=== PATIENT | female | born 1955 | race Caucasian/White ===

== ENCOUNTER 2016-06-25 13:57 | Emergency (ER) | payer OTHER ==
[2016-06-25 16:12] LABS: Hematocrit 41 % (35-47); Hemoglobin 13.9 g/dl (12.0-16.0); Mean Corpuscular HGB Conc 34 g/dl (31-36); Mean Corpuscular Hemoglobin 30 pg (27-31); Mean Corpuscular Volume 87 fL (80-97); Mean Platelet Volume 8 um3 (7.4-10.4); Red Blood Count 4.71 10^6/ul (4.0-5.4); Red Cell Distribution Width 14 % (10.5-15)
--- NOTE | 2016-06-25 16:24 | RAD ---
HISTORY: Trembling, off-balance, tingling COMPARISONS: June 16, 2011 TECHNIQUE: Multiple contiguous axial CT scans were obtained of the head without intravenous contrast. FINDINGS: HEMORRHAGE/INFARCT: There is no hemorrhage or acute infarct. MASSES/SHIFT: There is no mass or shift. EXTRA-AXIAL SPACES: There are no extra-axial fluid collections. SULCI AND VENTRICLES: The sulci and ventricles are normal in size and position for the patient's stated age. 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 BRAINSTEM: There are no focal parenchymal abnormalities. CEREBELLUM: There are no focal parenchymal abnormalities. VESSELS: The vessels are grossly normal. PARANASAL SINUSES: The paranasal sinuses are clear. ORBITS: The orbits are unremarkable. BONES AND SOFT TISSUE: There is post surgical change to the skull. OTHER: None IMPRESSION: 1. 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 2. NO ACUTE INTRACRANIAL PATHOLOGY.
--- NOTE | 2016-06-25 16:32 | RAD ---
HISTORY: Tingling COMPARISONS: None VIEWS: 2: Frontal dual-energy and lateral views of the chest. FINDINGS: CARDIOMEDIASTINAL SILHOUETTE: The cardiomediastinal silhouette is normal. LANA: The lana are normal. PLEURA: The costophrenic angles are sharp. No pleural abnormalities are noted. LUNG PARENCHYMA: The lungs are clear. ABDOMEN: The upper abdomen is clear. There is no subphrenic gas. BONES AND SOFT TISSUES: No bone or soft tissue abnormalities are noted. OTHER: None. IMPRESSION: NO ACTIVE CARDIOPULMONARY DISEASE.
[2016-06-25 16:35] LABS: Albumin 4.6 g/dL (3.2-5.2); BUN/Creatinine Ratio 16.7 (8-20); Calcium 9.8 mg/dL (8.6-10.3); EGFR African American 88.4 (>60); EGFR Non-African American 68.7 (>60); Globulin 2.7 g/dL (2-4); Potassium 3.3 mmol/L (3.5-5.0); Total Bilirubin 0.4 mg/dL (0.2-1.0); Total Protein 7.3 g/dL (6.4-8.9)
[2016-06-25] MEDS ORDERED: Potassium Chlor TAB* 20 MEQ TAB.ER PO ONE (16:53)
[2016-06-25 17:24] LABS: Urine Bacteria Absent (Absent); Urine Bilirubin Negative (Negative); Urine Glucose Negative (Negative); Urine Nitrite Negative (Negative)
[2016-06-25 17:36] VITALS: BP 122/73
--- NOTE | 2016-06-25 20:10 | ED ---
Adarsh Mckinney Rebecca, scribed for Uriel Machado MD on 06/25/16 at 1547 . Dizziness - HPI Summary HPI Summary: Pt is a 61 y/o F who presents to ED c/o diffuse bodily tingling. States that sx are "not really dizziness" and that the sensation is "sort of an ethereal feeling," difficult to describe. C/o unsteady gait and sensation that the "sidewalk is moving". Sx began suddenly 2 days ago and have been intermittent since onset. Sx aggravated and alleviated by nothing. 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 Current episodes are different from episodes of auras in the past. - History Of Current Complaint Chief Complaint: EDDizziness Stated Complaint: SHAKY Time Seen by Provider: 06/25/16 15:43 Hx Obtained From: Patient Onset/Duration: Suddenly Timing: Intermittent Episode Lasting Character: Unable To Describe Aggravating Factor(s): Nothing Alleviating Factor(s): Nothing Associated Signs And Symptoms: Positive: Unsteady Gait, Visual Changes - Appears as though the ground is moving, Other: - Diffuse bodily tingling - Allergies/Home Medications Allergies/Adverse Reactions: Allergies Allergy/AdvReac Type Severity Reaction Status Date / Time Lamotrigine Allergy Mild Hives Verified 11/07/12 14:47 PMH/Surg Hx/FS Hx/Imm Hx Endocrine/Hematology History: Denies: Hx Diabetes Sensory History: Reports: Hx Contacts or Glasses Opthamlomology History: Reports: Hx Contacts or Glasses Neurological History: Reports: Hx Seizures - Cancer History Hx Chemotherapy: No Hx Radiation Therapy: No - Surgical History Surgery Procedure, Year, and Place: Part of brain removed to stop seizures. Infectious Disease History: No Infectious Disease History: Denies: Traveled Outside the [place] in Last 30 Days - Family History Known Family History: Negative: Cardiac Disease - Social History Alcohol Use: None Substance Use Type: Reports: None Smoking Status (MU): Never Smoked Tobacco Review of Systems Positive: Other - Ground appears to be moving Neurological: Other - Diffuse bodily tingling, unsteady gait All Other Systems Reviewed And Are Negative: Yes Physical Exam - Summary Physical Exam Summary: VITAL SIGNS: Reviewed. GENERAL: Patient is a well developed and nourished female who is lying comfortable in the stretcher. Patient is not in any acute respiratory distress. HEAD AND FACE: No signs of trauma. No ecchymosis, hematomas or skull depressions. No sinus tenderness. EYES: PERRLA, EOMI x 2, No injected conjunctiva, no nystagmus. No photophobia. EARS: Hearing grossly intact. Ear canals and tympanic membranes are within normal limits. MOUTH: Oropharynx within normal limits. NECK: Supple, trachea is midline, no adenopathy, no JVD, no carotid bruit, no c- spine tenderness, neck with full ROM. No meningeal signs, no Kernig's or brudzinskis signs. CHEST: Symmetric, no tenderness at palpation LUNGS: Clear to auscultation bilaterally. No wheezing or crackles. CVS: Regular rate and rhythm, S1 and S2 present, no murmurs or gallops appreciated. ABDOMEN: Soft, non-tender. No signs of distention. No rebound no guarding, and no masses palpated. Bowel sounds are normal. EXTREMITIES: FROM in all major joints, no edema, no cyanosis or clubbing. NEURO: Alert and oriented x 3. No acute neurological deficits. Speech is normal and follows commands. SKIN: Dry and warm Vital Signs On Initial Exam: Initial Vitals Temp Pulse Resp BP Pulse Ox 97.6 F 72 16 143/70 100 06/25/16 13:59 06/25/16 13:59 06/25/16 13:59 06/25/16 13:59 06/25/16 13:59 Diagnostics - Vital Signs Vital Signs Temp Pulse Resp BP Pulse Ox 06/25/16 13:59 97.6 F 72 16 143/70 100 - Laboratory Lab Results: Lab Results 06/25/16 Range/Units 15:55 WBC 8.0 (3.5-10.8) 10^3/ul RBC 4.71 (4.0-5.4) 10^6/ul Hgb 13.9 (12.0-16.0) g/dl Hct 41 (35-47) % MCV 87 (80-97) fL MCH 30 (27-31) pg MCHC 34 (31-36) g/dl RDW 14 (10.5-15) % Plt Count 260 (150-450) 10^3/ul MPV 8 (7.4-10.4) um3 Neut % (Auto) 60.6 (38-83) % Lymph % (Auto) 32.1 (25-47) % [place] % (Auto) 6.0 (1-9) % Eos % (Auto) 0 (0-6) % Baso % (Auto) 1.3 (0-2) % Absolute Neuts (auto) 4.8 (1.5-7.7) 10^3/ul Absolute Lymphs (auto) 2.6 (1.0-4.8) 10^3/ul Absolute Monos (auto) 0.5 (0-0.8) 10^3/ul Absolute Eos (auto) 0 (0-0.6) 10^3/ul Absolute Basos (auto) 0.1 (0-0.2) 10^3/ul Absolute Nucleated RBC 0.01 10^3/ul Nucleated RBC % 0.1 Result Diagrams: 06/25/16 15:55 06/25/16 15:55 Lab Statement: Any lab studies that have been ordered have been reviewed, and results considered in the medical decision making process. - Radiology CXR Xray Interpretation: No Acute Changes - No active cardiopulmonary disease Radiology Interpretation Completed By: Radiologist - CT CT Brain CT Interpretation Completed By: Radiologist - EKG 1406 Cardiac Rate: Bradycardia - 51 bpm EKG Rhythm: Sinus Bradycardia EKG Interpretation: No ST elevations Dizzy Course/Dx - Course Assessment/Plan: 61 y/o F presents to ED with a CC of tingling all over my body including my face. Pt reports she is unable to describe her sx well. She reports she has Hx of seizures and was afraid this may be an aura for her seizures, although she says that she has never had this type of aura. Head CT shows no acute intracranial pathology. Blood work within normal limits besides slight decrease in potassium. Pt was given potassium chloride. I discussed my PE findings and results w/ Dr. Meade with neurology and he recommends an outpatient MRI. Therefore pt will be d/c to home with a f/u with Dr. Sarkar who is her neurologist for further workup and management. She was instructed to return to ED if any sx worsen or return. She understands and agrees. I discussed all my findings and test results with the patient. Patient understands and agrees. Patient was instructed to return to the emergency room immediately if any of the symptoms return or worsens. Patient understands and agrees. Plan of care was discussed with the patient and patient understands and agrees with the plan of care. All questions were answered at patient satisfaction. There were no further complaints or concerns. Patient was instructed to follow up with primary care physician within 3 to 5 days. Patient is hemodynamically stable. Patient is alert and oriented x 3. No acute neurological deficits. - Diagnoses Provider Diagnoses: Peripheral neuropathy - Provider Notifications Discussed Care Of Patient with: Dr. Meade, neurologist, who advised an outpatient MRI. Time Discussed With Above Provider: 17:22 Discharge - Discharge Plan Condition: Stable Disposition: HOME Patient Education Materials: Peripheral Neuropathy (ED) Referrals: Carlton ROBERTO,Courtney Edmondson [Primary Care Provider] - 3 Days (Follow up with your primary care physician in 3 days. ) Yasmine Sarkar MD [Medical Doctor] - 3 Days (Follow up with Dr. Sarkar, neurologist, within the next 3 days.) Additional Instructions: Return to ED for any returning or worsening symptoms. The documentation as recorded by the Adarsh rojas Rebecca accurately reflects the service I personally performed and the decisions made by , Uriel Machado MD.
== END 2016-06-25 17:51 | disposition home or self-care (01) ==
LOC: ED 13:57
DX: G62.9 Polyneuropathy, unspecified (principal); R42 Dizziness and giddiness
CPT/HCPCS: 36415; 70450; 71020; 80053; 81003; 81015; 83605; 84484; 85025; 85610; 93005; 99282; A9270-GY

== ENCOUNTER 2022-11-12 19:00 | Observation (INO) ==
[2022-11-12 19:43] LABS: ABS Basophils 0.1 10^3/uL (0.0-0.1); ABS Lymphocytes 0.1 10^3/uL (1.0-4.8); ABS Monocytes 0.1 10^3/uL (0.0-0.9); ABS Neutrophils 2.8 10^3/uL (1.5-7.6); Hematocrit 29.9 % (35-45); Lymphocyte % 4.1 %; Mean Corpuscular Hemoglobin 28.4 pg (27-33); Mean Corpuscular Hgb Conc 33.3 g/dL (31-36); Mean Corpuscular Volume 85.2 fL (80-97); Mean Platelet Volume 7.1 fL (7.5-11.2); Nucleated Red Blood Cells % 0.1 /100 WBC (0.0-0.4); Platelet Count 126 10^3/uL (150-450); Red Blood Count 3.51 10^6/uL (3.63-4.92); Red Cell Distribution Width 20.5 % (12-17); White Blood Count 3.1 10^3/uL (3.8-11.8)
[2022-11-12 20:29] LABS: Albumin 3.4 g/dL (3.2-5.2); Albumin/Globulin Ratio 1.5 (1-3); C Reactive Protein 85.99 mg/L (<8.01); Calcium 8.5 mg/dL (8.6-10.3); Creatinine, Serum 0.78 mg/dL (0.51-0.95); Globulin 2.3 g/dL (2-4); Potassium 3.7 mmol/L (3.5-5.0); Total Bilirubin 0.3 mg/dL (0.2-1.0); Total Protein 5.7 g/dL (6.4-8.9); eGFR CKD-EPI 82.7 (>60)
[2022-11-12] MEDS ORDERED: Iohexol 350 (CONTRAST) 500 ML MDV IV ONE (20:42)
[2022-11-12 20:58] LABS: High Sensitivity Troponin 1 Hr 6 pg/mL (<15)
[2022-11-12] MEDS ORDERED: Morphine 4 MG/ML VIAL (1 ml) IV ONE (21:55)
[2022-11-12] MEDS ORDERED: Enoxaparin 40 MG/0.4 ML SYR SUBCUT SCH (23:45)
[2022-11-12] MEDS ORDERED: Ondansetron 4 mg VIAL 2 MG/ML 2 ml VIAL IV PRN (23:56)
[2022-11-12] MEDS ORDERED: Polyethylene Glycol 3350 17 GM PACKET PO PRN (23:56)
[2022-11-12] MEDS ORDERED: Senna TAB 8.6 mg TAB PO PRN (23:56)
[2022-11-13] MEDS ORDERED: Morphine 4 MG/ML VIAL (1 ml) IV PRN (01:24)
[2022-11-13] MEDS ORDERED: Morphine 2 MG/ML SYRINGE IV PRN (01:25)
[2022-11-13] MEDS ORDERED: Lactated Ringers 1000 ml BAG 1,000 ML IV ONE (01:26)
[2022-11-13] MEDS ORDERED: LAMOTRIGINE 100 MG PO SCH (02:00)
[2022-11-13] MEDS: Morphine ER 30 mg TAB ** extended release PO SCH ×2 (02:43→10:07)
[2022-11-13] MEDS ORDERED: Enoxaparin 40 MG/0.4 ML SYR SUBCUT SCH (06:00)
[2022-11-13] MEDS ORDERED: CALCIUM CARBONATE VITAMIN D3 PO SCH (09:00)
[2022-11-13] MEDS ORDERED: Potassium Chlor 20 meq TAB.ER PO SCH (09:00)
[2022-11-13] MEDS ORDERED: Calcium/Vitamin D TAB 250/125 TAB PO SCH (09:00)
[2022-11-13] MEDS ORDERED: Cholecalciferol (VIT D3) 1,000 unit TAB PO SCH (09:00)
[2022-11-13] MEDS ORDERED: Polyethylene Glycol 3350 17 GM PACKET PO SCH (09:00)
[2022-11-13] MEDS: LAMOTRIGINE 25 MG PO SCH ×2 (09:58→12:48)
[2022-11-13 10:00] VITALS: BP 109/51
[2022-11-13] MEDS ORDERED: Senna TAB 8.6 mg TAB PO SCH (21:00)
[2022-11-16 16:36] LABS: Anaplasma phagocytophilum Negative (Negative); B. miyamotoi PCR, B Negative (Negative); Babesia divergens/MO-1 Negative (Negative); Babesia ducani Negative (Negative); Ehrlichia chaffeensis Negative (Negative); Ehrlichia ewingii/canis Negative (Negative); Ehrlichia muris eauclairensis Negative (Negative)
== END 2022-11-13 13:19 | disposition home or self-care (01) ==
LOC: ED 19:00 → EDHOLD 19:00 → SUATTDRO 23:56 → MEDTELE 11-13 03:24
PROVIDERS: ADMIT Internal Medicine; ATTEND Student in an Organized Health Care Education/Training Program

== ENCOUNTER 2023-01-23 15:18 | Inpatient (IN) ==
[2023-01-23 16:28] LABS: INR 1.21 (0.88-1.18)
[2023-01-23 16:31] LABS: Hematocrit 21.2 % (35-45); Mean Corpuscular Hemoglobin 28.4 pg (27-33); Mean Corpuscular Hgb Conc 32.9 g/dL (31-36); Mean Corpuscular Volume 86.3 fL (80-97); Red Blood Count 2.46 10^6/uL (3.63-4.92); Red Cell Distribution Width 20.6 % (12-17); White Blood Count 12.5 10^3/uL (3.8-11.8)
[2023-01-23 16:39] LABS: Albumin/Globulin Ratio 1.1 (1-3); C Reactive Protein 175.36 mg/L (<8.01); Calcium 8.9 mg/dL (8.6-10.3); Creatinine, Serum 0.58 mg/dL (0.51-0.95); Globulin 2.8 g/dL (2-4); Potassium 4.5 mmol/L (3.5-5.0); Total Bilirubin 0.2 mg/dL (0.2-1.0); Total Protein 5.8 g/dL (6.4-8.9); eGFR CKD-EPI 98.5 (>60)
[2023-01-23 16:54] LABS: ABS Basophils 0.1 10^3/uL (0.0-0.1); ABS Lymphocytes 0.2 10^3/uL (1.0-4.8); ABS Monocytes 0.3 10^3/uL (0.0-0.9); ABS Neutrophils 11.9 10^3/uL (1.5-7.6); Lymphocyte % 1.5 %; Mean Platelet Volume 9.1 fL (7.5-11.2); Platelet Count 34 10^3/uL (150-450)
[2023-01-23 18:04] LABS: High Sensitivity Troponin 1 Hr 33 pg/mL (<15)
[2023-01-23] MEDS ORDERED: NS 0.9% 1000 ml BAG 1,000 ML IV ONE (18:05)
[2023-01-23] MEDS ORDERED: Lactated Ringers 1000 ml BAG 1,000 ML IV ONE ×2 (18:06)
[2023-01-23] MEDS ORDERED: Iodixanol (CONTRAST) 320 MG/ML 100 ML SDV IV ONE (18:48)
[2023-01-23] MEDS ORDERED: Vancomycin 1,000 MG in NS 0.9% 250 ml 250 ML IVPB ONE (18:53)
[2023-01-23] MEDS ORDERED: Piperacillin/Tazobac 3.375 BAG 3.375 GM/100 ML BAG IV ONE (18:57)
[2023-01-23] MEDS ORDERED: Vancomycin per Pharmacy 1 EA NOTE FOLLOW UP SCH (19:00)
[2023-01-23] MEDS ORDERED: Zosyn per Pharmacy NOTE FOLLOW UP SCH (19:00)
[2023-01-23] MEDS: Morphine ER 30 mg TAB ** extended release PO SCH (21:06)
[2023-01-24] MEDS: CMC:Lamotrigine XR 50 mg TAB (NF) PO SCH ×2 (00:20→21:51)
[2023-01-24] MEDS: ZOSYN 3.375 GM Q8H per EXTENDED INFUSION IV SCH ×3 (01:05→17:30)
[2023-01-24 03:36] LABS: ABS Lymphocytes 0.2 10^3/uL (1.0-4.8); ABS Monocytes 0.3 10^3/uL (0.0-0.9); ABS Neutrophils 10.4 10^3/uL (1.5-7.6); ABS Nucleated RBC 0.02 10^3/ul; Hematocrit 27.1 % (35-45); Hemoglobin 9.3 g/dL (11.5-14.3); Lymphocyte % 2.3 %; Mean Corpuscular Hemoglobin 30.1 pg (27-33); Mean Corpuscular Hgb Conc 34.5 g/dL (31-36); Mean Corpuscular Volume 87.3 fL (80-97); Mean Platelet Volume 8.4 fL (7.5-11.2); Nucleated Red Blood Cells % 0.2 /100 WBC (0.0-0.4); Platelet Count 33 10^3/uL (150-450); Red Cell Distribution Width 18.7 % (12-17)
[2023-01-24] MEDS: Morphine ER 30 mg TAB ** extended release PO SCH ×3 (06:23→21:48)
[2023-01-24 06:58] LABS: ABS Lymphocytes 0.2 10^3/uL (1.0-4.8); ABS Monocytes 0.3 10^3/uL (0.0-0.9); ABS Neutrophils 11.2 10^3/uL (1.5-7.6); ABS Nucleated RBC 0.01 10^3/ul; Hematocrit 25.9 % (35-45); Hemoglobin 8.8 g/dL (11.5-14.3); Lymphocyte % 1.6 %; Mean Corpuscular Hemoglobin 29.7 pg (27-33); Mean Corpuscular Volume 87.2 fL (80-97); Mean Platelet Volume 8.1 fL (7.5-11.2); Platelet Count 28 10^3/uL (150-450); Red Blood Count 2.97 10^6/uL (3.63-4.92); Red Cell Distribution Width 18.7 % (12-17); White Blood Count 11.7 10^3/uL (3.8-11.8)
[2023-01-24 07:10] LABS: Albumin 2.7 g/dL (3.2-5.2); Calcium 8.5 mg/dL (8.6-10.3); Creatinine, Serum 0.61 mg/dL (0.51-0.95); Globulin 2.7 g/dL (2-4); Magnesium 1.7 mg/dL (1.9-2.7); Total Bilirubin 0.4 mg/dL (0.2-1.0); Total Protein 5.4 g/dL (6.4-8.9); eGFR CKD-EPI 97.3 (>60)
[2023-01-24] MEDS ORDERED: Magnesium Sulfate 2 gm BAG 2 GM/50 ML BAG IVPB ONE (08:40)
[2023-01-24] MEDS: Vancomycin 1000 MG in NS 0.9% 250 ML IVPB SCH ×2 (10:54→21:56)
[2023-01-24 18:54] LABS: Urine Appearance Clear; Urine Bilirubin Negative (Negative); Urine Blood 2+ (Negative); Urine Color Straw; Urine Glucose Negative (Negative); Urine Ketones Negative (Negative); Urine Nitrite Negative (Negative); Urine Protein Negative (Negative); Urine Specific Gravity 1.018 (1.002-1.030); Urine Urobilinogen Negative (Negative)
[2023-01-24 18:58] LABS: Urine Bacteria Absent (Absent); Urine Red Blood Cell 2+(6-10/hpf) (Absent); Urine Squamous Epithelial Cell Present (Absent); Urine White Blood Cell Trace(0-5/hpf) (Absent)
[2023-01-25] MEDS: ZOSYN 3.375 GM Q8H per EXTENDED INFUSION IV SCH ×2 (01:32→08:30)
[2023-01-25] MEDS: Morphine ER 30 mg TAB ** extended release PO SCH ×3 (06:02→21:23)
[2023-01-25 06:52] LABS: ABS Lymphocytes 0.2 10^3/uL (1.0-4.8); ABS Monocytes 0.3 10^3/uL (0.0-0.9); ABS Neutrophils 5.6 10^3/uL (1.5-7.6); ABS Nucleated RBC 0.01 10^3/ul; Hematocrit 24.5 % (35-45); Hemoglobin 8.4 g/dL (11.5-14.3); Lymphocyte % 3.9 %; Mean Corpuscular Hgb Conc 34.1 g/dL (31-36); Mean Corpuscular Volume 87.8 fL (80-97); Mean Platelet Volume 8.9 fL (7.5-11.2); Nucleated Red Blood Cells % 0.1 /100 WBC (0.0-0.4); Platelet Count 29 10^3/uL (150-450); Red Cell Distribution Width 18.6 % (12-17); White Blood Count 6.2 10^3/uL (3.8-11.8)
[2023-01-25 06:56] LABS: Albumin 2.7 g/dL (3.2-5.2); Albumin/Globulin Ratio 1.1 (1-3); C Reactive Protein 140.72 mg/L (<8.01); Calcium 8.6 mg/dL (8.6-10.3); Creatinine, Serum 0.64 mg/dL (0.51-0.95); Globulin 2.4 g/dL (2-4); Phosphorus 3.3 mg/dL (2.5-5.0); Potassium 3.5 mmol/L (3.5-5.0); Total Bilirubin 0.2 mg/dL (0.2-1.0); Total Protein 5.1 g/dL (6.4-8.9); eGFR CKD-EPI 96.2 (>60)
[2023-01-25] MEDS ORDERED: Vancomycin Trough Check NOTE FOLLOW UP ONE (09:30)
[2023-01-25] MEDS: Vancomycin 1000 MG in NS 0.9% 250 ML IVPB SCH (10:29)
[2023-01-25] MEDS ORDERED: ceFAZolin 2 GM in NS PREMIX 2 GM/100 ML BAG IVPB SCH (12:00)
[2023-01-25] MEDS: ceFAZolin 2 GM PREMIX 2 GM/50 ML BAG IV SCH ×2 (12:36→21:39)
[2023-01-25 18:47] LABS: Body Fluid Source Pleural Fluid
[2023-01-25 18:48] LABS: Body Fluid Appearance Bloody; Body Fluid Color Red
[2023-01-25 20:00] LABS: Body Fluid WBC 11603 /mcL
[2023-01-25 21:22] LABS: Body Fluid Mono 45 %; Body Fluid Other Cells 19; Body Fluid Total Cells Counted 200
[2023-01-25] MEDS: CMCS:Lamotrigine XR 100 mg TAB (NF) PO SCH (21:24)
[2023-01-26] MEDS: Morphine ER 30 mg TAB ** extended release PO SCH ×3 (05:37→21:28)
[2023-01-26] MEDS: ceFAZolin 2 GM PREMIX 2 GM/50 ML BAG IV SCH ×2 (05:55→13:54)
[2023-01-26 06:11] LABS: Calcium 8.7 mg/dL (8.6-10.3); Creatinine, Serum 0.75 mg/dL (0.51-0.95); Potassium 3.6 mmol/L (3.5-5.0); eGFR CKD-EPI 86.7 (>60)
[2023-01-26 06:15] LABS: ABS Lymphocytes 0.2 10^3/uL (1.0-4.8); ABS Monocytes 0.3 10^3/uL (0.0-0.9); ABS Nucleated RBC 0.01 10^3/ul; Hematocrit 22.4 % (35-45); Hemoglobin 7.6 g/dL (11.5-14.3); Lymphocyte % 3.6 %; Mean Corpuscular Hgb Conc 33.8 g/dL (31-36); Mean Corpuscular Volume 88.8 fL (80-97); Mean Platelet Volume 8.2 fL (7.5-11.2); Nucleated Red Blood Cells % 0.1 /100 WBC (0.0-0.4); Platelet Count 26 10^3/uL (150-450); Red Blood Count 2.53 10^6/uL (3.63-4.92); White Blood Count 5.6 10^3/uL (3.8-11.8)
[2023-01-26] MEDS: CMCS:Lamotrigine XR 100 mg TAB (NF) PO SCH (21:29)
[2023-01-26 22:11] LABS: ABS Lymphocytes 0.2 10^3/uL (1.0-4.8); ABS Monocytes 0.6 10^3/uL (0.0-0.9); ABS Neutrophils 9.4 10^3/uL (1.5-7.6); Hematocrit 23.6 % (35-45); Hemoglobin 8.1 g/dL (11.5-14.3); Lymphocyte % 2.1 %; Mean Corpuscular Hemoglobin 29.8 pg (27-33); Mean Corpuscular Hgb Conc 34.1 g/dL (31-36); Mean Corpuscular Volume 87.5 fL (80-97); Mean Platelet Volume 8.3 fL (7.5-11.2); Platelet Count 30 10^3/uL (150-450); Red Cell Distribution Width 19.2 % (12-17); White Blood Count 10.3 10^3/uL (3.8-11.8)
[2023-01-27] MEDS: ceFAZolin 2 GM PREMIX 2 GM/50 ML BAG IV SCH (02:46)
[2023-01-27] MEDS: Morphine ER 30 mg TAB ** extended release PO SCH (05:39)
[2023-01-27 13:39] VITALS: BP 151/75
== END 2023-01-27 14:08 | disposition home or self-care (01) | DRG 871 ==
LOC: ED 15:18 → EDHOLD 15:18 → MEDTELE 20:29 → SUATTDRO 01-24 11:32
PROVIDERS: ADMIT Internal Medicine; ATTEND Internal Medicine